=== PATIENT | male | born 1990 | race Caucasian/White ===

== ENCOUNTER 2018-04-17 08:46 | Emergency (ER) | payer MEDICARE, MEDICAID ==
[~2018-04-17] VITALS: Ht 190.5 cm; Wt 108.9 kg
[2018-04-17 11:44] VITALS: BP 111/89
== END 2018-04-17 12:33 | disposition home or self-care (01) ==
LOC: ER 08:46
DX: J20.9 Acute bronchitis, unspecified (principal); F12.10 Cannabis abuse, uncomplicated; I10 Essential (primary) hypertension; F17.210 Nicotine dependence, cigarettes, uncomplicated
CPT/HCPCS: 71046